=== PATIENT | female | born 1950 | race Caucasian/White ===

== ENCOUNTER 2018-07-31 09:50 | Outpatient (CLI) | payer MEDICARE, OTHER ==
--- NOTE | 2018-08-07 10:55 | MMO ---
BILATERAL SCREENING MAMMOGRAM: Date: 07/31/18 HISTORY: 68-year-old female. Routine screening mammography. COMPARISON: Prior mammograms have been purged. Current study will be treated as a baseline mammogram. TECHNIQUE: CC and MLO views of both breasts are submitted for interpretation. This patient's mammogram was reviewed with the assistance of computer-aided detection. FINDINGS: The breasts are composed of scattered fibroglandular tissue. Bilaterally, no suspicious dominant mass , architectural distortion, or suspicious calcifications. Bilateral benign-appearing calcifications a re noted. IMPRESSION: BIRADS 2: Benign Finding(s) RECOMMENDATION: Annual mammogram. POS: [facility]
== END 2018-07-31 09:51 | disposition home or self-care (01) ==
LOC: SCSMAMMO 09:50
PROVIDERS: ATTEND Family Medicine
DX: Z12.31 Encounter for screening mammogram for malignant neoplasm of breast (principal)
CPT/HCPCS: 77067

== ENCOUNTER 2019-08-20 09:39 | Outpatient (CLI) | payer MEDICARE, OTHER ==
--- NOTE | 2019-08-20 14:49 | CT ---
CT ABDOMEN AND PELVIS WITH IV CONTRAST: DATE: 08/20/2019. PROVIDED CLINICAL HISTORY: Abdominal pain. FINDINGS: The visualized lung bases are free of significant opacity. Changes of fatty infiltration of the liver are demonstrated. There is a tiny hypodensity involving t he spleen too small to characterized but likely reflecting a cyst or hemangioma. The pancreas, kidne ys, and adrenal glands demonstrate no significant abnormality. There is no evidence for bowel obstruction. There is moderate colonic fecal retention. There is no bowel dilatation, inflammatory stranding, free fluid, or free air apparent. Changes of prior hystere ctomy are demonstrated with evidence for rectal and urinary bladder prolapse. Scattered vascular calcifications are seen. The osseous structures demonstrate no concerning lytic or blastic lesions. IMPRESSION: 1. Moderate colonic fecal retention suggests constipation. 2. Fatty infiltration of the liver. 3. Findings compatible with rectal and urinary bladder prolapse. POS: [facility]
== END 2019-08-20 09:40 | disposition home or self-care (01) ==
LOC: SCSCT 09:39
PROVIDERS: ATTEND Internal Medicine Gastroenterology
DX: R10.31 Right lower quadrant pain (principal); K76.0 Fatty (change of) liver, not elsewhere classified
CPT/HCPCS: 74177; 82565

== ENCOUNTER 2020-05-11 08:00 | Outpatient (CLI) | payer MEDICARE ==
--- NOTE | 2020-05-11 10:20 | MRI ---
MRI Abdomen WO Con History: Epigastric pain after cholecystectomy. Comparison: Reference is made to CT abdomen pelvis August 2019 Findings: Multiplanar multisequence MRI of the abdomen was performed without intravenous contrast. Mild S-shaped scoliosis of the thoracolumbar spine. Large L2 intravertebral hemangioma. No significant pleural or pericardial fluid. The common bile duct measures up to 8 mm. No choledocholithiasis. No intrahepatic biliary dilatation. The pancreatic duct is without dilatation. No pancreaticobiliary maljunction. Prior cholecystectomy. Small bilateral renal cysts. Adrenal glands are unremarkable. Spleen is unremarkable. Moderate hepatic steatosis with hepatic fat fraction 27.3% and fat percentage of 27.7% small 4 mm T2 hyperintense cyst within hepatic segment 7. Small perineural cyst along right T10 exiting nerve root. No aurora hepatis adenopathy. No periaortic adenopathy. Impression: 1. No choledocholithiasis. Common bile duct measures up to 8 mm. No pancreaticobiliary maljunction. 2. Benign L2 intervertebral hemangioma. 3. Small 4 mm hepatic segment VII cyst as well as bilateral renal cysts. 4. No acute inflammatory process within the abdomen.
== END 2020-05-11 08:01 | disposition home or self-care (01) ==
LOC: MRI 08:00
PROVIDERS: ATTEND Internal Medicine Gastroenterology
DX: R10.13 Epigastric pain (principal); D18.09 Hemangioma of other sites; K76.89 Other specified diseases of liver; N28.1 Cyst of kidney, acquired; Z90.49 Acquired absence of other specified parts of digestive tract
CPT/HCPCS: 74181